=== PATIENT | female | born 1990 | race Caucasian/White ===

== ENCOUNTER 2017-01-15 03:36 | Emergency (ER) | payer BC, MEDICAID, OTHER, SELFPAY ==
[~2017-01-15] VITALS: Ht 157.5 cm; Wt 59.1 kg
[2017-01-15] MEDS ORDERED: PROMETHAZINE 25 MG/ML, 1ML IM ONE (04:00)
[2017-01-15] MEDS ORDERED: PROMETHAZINE 25 MG/ML, 1ML ONE (04:02)
[2017-01-15] MEDS ORDERED: LORazepam 1MG TABLET PO ONE (04:30)
[2017-01-15] MEDS ORDERED: LORazepam 1MG TABLET ONE (04:31)
[2017-01-15 04:35] LABS: BLOOD UREA NITROGEN 12 mg/dL (7-18)
[2017-01-15 04:47] LABS: DIFF TOTAL CELLS COUNTED 100 CELL DIFF
[2017-01-15 04:49] LABS: VERIFY COUNTS? YES
[2017-01-15 05:17] LABS: DAU SCREEN DISCLAIMER
[2017-01-15 05:26] LABS: PATH.CAST-FLAG NOT PRESENT; SPERM-FLAG NOT PRESENT; SRC-FLAG NOT PRESENT; XTAL-FLAG NOT PRESENT; YLC-FLAG NOT PRESENT
[2017-01-15 05:38] LABS: ASPARTATE AMINO TRANSFERASE 22 U/L (15-37)
[2017-01-15 05:48] VITALS: BP 124/90
== END 2017-01-15 05:49 | disposition home or self-care (01) ==
LOC: ED 05:09
DX: R10.84 Generalized abdominal pain (principal); R11.2 Nausea with vomiting, unspecified
CPT/HCPCS: 36415; 74176; 80048; 80076; 80307; 81001; 82040; 83690; 84703; 85025; 87086; 96372; 99285; J2550